=== PATIENT | female | born 1990 | race Caucasian/White ===

== ENCOUNTER 2018-10-31 00:36 | Emergency (ER) | payer SELFPAY, OTHER ==
[2018-10-31] MEDS: IBUPROFEN 800 MG TAB PO (01:44)
== END 2018-10-31 02:26 | disposition home or self-care (01) ==
LOC: FTE 00:36
DX: H66.92 Otitis media, unspecified, left ear (principal); H60.92 Unspecified otitis externa, left ear
CPT/HCPCS: 99283